=== PATIENT | female | born 2000 | race Caucasian/White ===

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

== ENCOUNTER 2020-08-03 16:38 | Outpatient (CLI) | payer OTHER ==
--- NOTE | 2020-08-03 17:35 | RAD ---
2 view chest: [08/03/2020] Comparison:10/21/2014 HISTORY: Coughing and wheezing FINDINGS: Heart and mediastinal contours are grossly unremarkable. No pneumothorax or pleural fluid. No focal consolidation or alveolar edema. IMPRESSION: No acute findings.
== END 2020-08-03 16:39 | disposition home or self-care (01) ==
LOC: SCSRAD 16:38
PROVIDERS: ATTEND Family Medicine
DX: J45.30 Mild persistent asthma, uncomplicated (principal)
CPT/HCPCS: 36415; 71046; 80053; 84443; 85025; 87086

== ENCOUNTER 2020-10-30 22:02 | Emergency (ER) | payer OTHER ==
[2020-10-30 22:49] LABS: #Basophils 0.1 thou/uL (0.0-0.2); #Lymphocytes 1.6 thou/uL (1.20-3.40); #Monocytes 0.7 thou/uL (0.11-0.59); #Neutrophils 6.7 thou/uL (1.40-6.50); %Basophils 0.6 % (0.0-1.0); %Eosinophils 0.4 % (0.0-10.0); %Lymphocytes 17.8 % (28.0-48.0); %Monocytes 7.2 % (0.0-4.0); %Neutrophils 74.1 % (31.0-61.0); Hemoglobin 14.4 g/dL (12.0-16.0); Mean Corpuscular HGB CONC 32.1 g/dL (32.0-36.0); Mean Corpuscular Hemoglobin 31.5 pg (25.0-35.0); Mean Corpuscular Volume 98.1 fL (78.0-98.0); Mean Platelet Volume 8.6 fL (7.4-10.4); Platelet Count 254 thou/uL (130-400); RBC Distribution Width 11.3 % (11.5-14.5); Red Blood Cell (RBC) Count 4.57 mill/uL (4.00-5.20)
--- NOTE | 2020-10-30 22:55 | RAD ---
Chest one view HISTORY: Dyspnea. COMPARISON: 08/03/2020. FINDINGS: Cardiac silhouette is magnified by projection. Pulmonary vasculature is unremarkable. Mediastinum is midline. No lobar consolidation or evidence of pneumothorax. IMPRESSION : No abnormalities are demonstrated.
[2020-10-30 22:56] LABS: BHCG - Serum Negative (NEGATIVE); Pregs Control Background? CLEAR/WHITE (CLR/WHITE); Pregs Control Bar Appear? YES (CONTROL BAR)
[2020-10-30 23:05] LABS: Bilirubin Negative (Negative); Blood, Urine 3+ (Negative); Clarity Clear (Clear); Glucose, Urine (Dipstick) Normal (Negative); Ketone, Urine Negative (Negative); Leukocyte Negative Leu/uL (Negative); Nitrite Negative (Negative); Protein, Urine (Dipstick) Negative (Neg-Trace); RBC/HPF 0-3 HPF (0-3); Specific Gravity, Urine 1.002 (1.002-1.036); Urobilinogen Normal mg/dL (Less than 2); WBC/HPF 0-3 HPF (0-3)
[2020-10-30 23:11] LABS: ALT (SGPT) 15 U/L (8-55); AST (SGOT) 17 U/L (5-30); Albumin 4.8 g/dL (3.5-5.0); Alkaline Phosphatase 73 U/L (40-100); Anion Gap 15 mmol/L (10-20); BUN (Urea Nitrogen) 9 mg/dL (8.4-21.0); Bilirubin, Total 0.5 mg/dL (0.2-1.2); Calc. Creatinine Clearance 0 mL/min (70-130); Calcium 9.3 mg/dL (7.8-10.44); Carbon Dioxide 23 mmol/L (22-29); Chloride 105 mmol/L (98-107); Globulin 2.8 g/dL (2.4-3.5); Glucose 95 mg/dL (70-105); Potassium 3.7 mmol/L (3.5-5.1); Protein, Total 7.6 g/dL (6.0-8.3); Sodium 139 mmol/L (136-145)
[2020-10-30 23:12] LABS: Bacteria/HPF 1+ HPF (None Seen)
[2020-10-30 23:13] LABS: Squamous Epithelial 0-3 HPF (0-3)
== END 2020-10-30 23:59 | disposition home or self-care (01) ==
LOC: ERS 22:02
DX: R42 Dizziness and giddiness (principal); R00.2 Palpitations; R11.0 Nausea
CPT/HCPCS: 71045; 80053; 81003; 81015; 84484; 84703; 85025; 93005

== ENCOUNTER 2021-11-02 05:08 | Emergency (ER) | payer OTHER ==
[2021-11-02] MEDS ORDERED: Ondansetron PF 4 MG/2 ML Vial ONE (05:28)
[2021-11-02] MEDS ORDERED: Acetaminophen 500 MG TAB ONE (05:50)
[2021-11-02 05:57] LABS: #Lymphocytes 0.6 thou/uL (1.20-3.40); #Monocytes 0.4 thou/uL (0.11-0.59); #Neutrophils 8.2 thou/uL (1.40-6.50); %Basophils 0.1 % (0.0-1.0); %Eosinophils 0.5 % (0.0-10.0); %Monocytes 4.4 % (0.0-4.0); Hemoglobin 15.1 g/dL (12.0-16.0); Mean Corpuscular HGB CONC 34.7 g/dL (32.0-36.0); Mean Corpuscular Hemoglobin 33.2 pg (25.0-35.0); Mean Corpuscular Volume 95.7 fL (78.0-98.0); Mean Platelet Volume 8.7 fL (7.4-10.4); Platelet Count 182 thou/uL (130-400); RBC Distribution Width 11.2 % (11.5-14.5); Red Blood Cell (RBC) Count 4.56 mill/uL (4.00-5.20); White Blood Cell (WBC) Count 9.2 thou/uL (4.8-10.8)
[2021-11-02 06:03] LABS: Bilirubin Negative (Negative); Blood, Urine Negative (Negative); Clarity Extra Turbid (Clear); Glucose, Urine (Dipstick) Normal (Negative); Ketone, Urine Negative (Negative); Leukocyte Negative Leu/uL (Negative); Nitrite Negative (Negative); Protein, Urine (Dipstick) 20 mg/dL (Neg-Trace); Specific Gravity, Urine 1.028 (1.002-1.036); Urobilinogen Normal mg/dL (Less than 2); pH, Urine 5.5 (5.0-9.0)
[2021-11-02 06:04] LABS: Pregnancy Test - Urine (BHCG) Negative (Negative); Pregu Control Background? CLEAR/WHITE (CLR/WHITE); Pregu Control Bar Appear? YES (CONTROL BAR); Specific Gravity 1.028 (1.002-1.036)
[2021-11-02 06:20] LABS: ALT (SGPT) 16 U/L (8-55); AST (SGOT) 21 U/L (5-34); Albumin 4.5 g/dL (3.5-5.0); Alkaline Phosphatase 75 U/L (40-100); Anion Gap 14 mmol/L (10-20); BUN (Urea Nitrogen) 14 mg/dL (7.0-18.7); Bilirubin, Total 0.9 mg/dL (0.2-1.2); Calc. Creatinine Clearance 0 mL/min (70-130); Calcium 9.6 mg/dL (7.8-10.44); Carbon Dioxide 24 mmol/L (22-29); Chloride 101 mmol/L (98-107); Glucose 101 mg/dL (70-105); Lipase 16 U/L (8-78); Protein, Total 7.5 g/dL (6.0-8.3); Sodium 135 mmol/L (136-145)
[2021-11-02] MEDS ORDERED: Promethazine HCl 25 MG/ML VIAL ONE (06:37)
== END 2021-11-02 08:31 | disposition home or self-care (01) ==
LOC: ERS 05:08
DX: R11.2 Nausea with vomiting, unspecified (principal); Z79.899 Other long term (current) drug therapy
CPT/HCPCS: 80053; 81003; 81025; 83690; 85025; 96374; 96375; J2405; J2550

== ENCOUNTER 2022-08-12 19:53 | Emergency (ER) | payer OTHER, SELFPAY ==
[2022-08-12 20:45] LABS: #Basophils 0.1 thou/uL (0.0-0.2); #Eosinphils 0.2 thou/uL (0.0-0.7); #Lymphocytes 2.5 thou/uL (1.20-3.40); #Monocytes 0.7 thou/uL (0.11-0.59); #Neutrophils 5.4 thou/uL (1.40-6.50); %Basophils 0.7 % (0.0-1.0); %Eosinophils 2.1 % (0.0-10.0); %Lymphocytes 27.9 % (21.0-51.0); %Monocytes 7.9 % (0.0-10.0); %Neutrophils 61.4 % (42.0-75.0); Hemoglobin 14.7 g/dL (12.0-16.0); Mean Corpuscular Hemoglobin 32.3 pg (27.0-31.0); Mean Corpuscular Volume 94.8 fL (78.0-98.0); Mean Platelet Volume 8.7 fL (7.4-10.4); Platelet Count 235 thou/uL (130-400); RBC Distribution Width 11.3 % (11.5-14.5); Red Blood Cell (RBC) Count 4.56 mill/uL (4.20-5.40); White Blood Cell (WBC) Count 8.8 thou/uL (4.8-10.8)
[2022-08-12 21:02] LABS: ALT (SGPT) 11 U/L (8-55); AST (SGOT) 14 U/L (5-34); Albumin 4.8 g/dL (3.5-5.0); Alkaline Phosphatase 82 U/L (40-110); Anion Gap 13 mmol/L (10-20); BUN (Urea Nitrogen) 10 mg/dL (7.0-18.7); Bilirubin, Total 0.4 mg/dL (0.2-1.2); Calc. Creatinine Clearance 0 mL/min (70-130); Calcium 10.1 mg/dL (7.8-10.44); Carbon Dioxide 24 mmol/L (22-29); Chloride 105 mmol/L (98-107); Estimated GFR 101; Globulin 2.6 g/dL (2.4-3.5); Glucose 92 mg/dL (70-105); Potassium 3.9 mmol/L (3.5-5.1); Protein, Total 7.4 g/dL (6.0-8.3); Sodium 138 mmol/L (136-145)
== END 2022-08-12 22:09 | disposition home or self-care (01) ==
LOC: ERS 19:53
DX: R07.89 Other chest pain (principal)
CPT/HCPCS: 36415; 71045; 80053; 84484; 85025; 93005

== ENCOUNTER 2023-06-25 05:23 | Emergency (ER) | payer OTHER ==
[2023-06-25] MEDS ORDERED: Acetaminophen 500 MG TAB ONE (05:48)
[2023-06-25] MEDS ORDERED: Ketorolac Tromethamine 30 MG/ML VIAL ONE (05:48)
[2023-06-25] MEDS ORDERED: Ondansetron PF 4 MG/2 ML Vial ONE (05:48)
[2023-06-25 05:56] LABS: #Monocytes 0.4 thou/uL (0.11-0.59); #Neutrophils 8.1 thou/uL (1.40-6.50); %Basophils 0.2 % (0.0-1.0); %Eosinophils 0.1 % (0.0-10.0); %Lymphocytes 7.8 % (21.0-51.0); %Monocytes 4.4 % (0.0-10.0); %Neutrophils 87.3 % (42.0-75.0); Hematocrit 43.3 % (36.0-47.0); Hemoglobin 15.1 g/dL (12.0-16.0); Mean Corpuscular HGB CONC 34.9 g/dL (32.0-36.0); Mean Corpuscular Hemoglobin 31.7 pg (27.0-31.0); Mean Platelet Volume 11.3 fL (7.4-10.4); Platelet Count 206 10x3/uL (130-400); RBC Distribution Width 11.8 % (11.5-14.5); Red Blood Cell (RBC) Count 4.76 mill/uL (4.20-5.40); White Blood Cell (WBC) Count 9.3 10x3/uL (4.8-10.8)
[2023-06-25 06:19] LABS: ALT (SGPT) 13 U/L (8-55); AST (SGOT) 16 U/L (5-34); Albumin 4.7 g/dL (3.5-5.0); Alkaline Phosphatase 68 U/L (40-110); Anion Gap 16 mmol/L (10-20); BUN (Urea Nitrogen) 11 mg/dL (7.0-18.7); Calc. Creatinine Clearance 0 mL/min (70-130); Calcium 9.5 mg/dL (7.8-10.44); Carbon Dioxide 22 mmol/L (22-29); Chloride 103 mmol/L (98-107); Estimated GFR 101; Globulin 2.6 g/dL (2.4-3.5); Glucose 107 mg/dL (70-105); Potassium 3.7 mmol/L (3.5-5.1); Protein, Total 7.3 g/dL (6.0-8.3); Sodium 137 mmol/L (136-145)
[2023-06-25 07:20] LABS: SARS-CoV-2 NAA Rapid Test Not Detected (NotDetected)
[2023-06-25 07:46] LABS: Clarity Clear (Clear); Leukocyte Negative Leu/uL (Negative); Nitrite Negative (Negative); Protein, Urine (Dipstick) Negative (Neg-Trace); Specific Gravity, Urine 1.004 (1.002-1.036)
[2023-06-25 07:47] LABS: Bilirubin Negative (Negative); Blood, Urine Negative (Negative); CAUTI Indications for Culture Fever or rigors; Glucose, Urine (Dipstick) Normal (Negative); Ketone, Urine 10 mg/dL (Negative); RBC/HPF 0-3 HPF (0-3); Squamous Epithelial 0-3 HPF (0-3); Urobilinogen Normal mg/dL (Less than 2); WBC/HPF 0-3 HPF (0-3)
[2023-06-25 07:49] LABS: Bacteria/HPF 1+ HPF (None Seen); Urine Culture Reflex No No
== END 2023-06-25 07:55 | disposition home or self-care (01) ==
LOC: ERS 05:23
DX: A08.4 Viral intestinal infection, unspecified (principal); E86.0 Dehydration; L03.119 Cellulitis of unspecified part of limb
CPT/HCPCS: 71045; 80053; 81001; 83605; 85025; 87040; 93005; 96374; 96375; J1885; J2405

== ENCOUNTER 2023-11-03 14:12 | Emergency (ER) | payer OTHER ==
[2023-11-03] MEDS ORDERED: EPINEPHrine 1 MG/ML VIAL ONE (14:19)
[2023-11-03] MEDS ORDERED: Dexamethasone 10 MG/ML VIAL ONE (14:33)
[2023-11-03] MEDS ORDERED: diphenhydrAMINE 50 MG/ML VIAL ONE (14:33)
== END 2023-11-03 18:00 | disposition home or self-care (01) ==
LOC: ERS 14:12
DX: T78.40XA Allergy, unspecified, initial encounter (principal)
CPT/HCPCS: 96372; 96374; 96375; J0171; J1100; J1200

== ENCOUNTER 2023-11-08 20:18 | Emergency (ER) | payer OTHER | END 2023-11-08 21:03 | disposition left against medical advice (07) | LOC: ERS 20:18 | DX: Z53.21 Procedure and treatment not carried out due to patient leaving prior to being seen by health care provider (principal) ==

== ENCOUNTER 2024-01-10 14:55 | Emergency (ER) | payer OTHER, SELFPAY ==
[2024-01-10] MEDS ORDERED: Lidocaine 2% Viscous 10 mL, Alum & Magn 30 mL SSW SCH (17:15)
[2024-01-10] MEDS ORDERED: Dexamethasone 10 MG/ML VIAL ONE (17:34)
== END 2024-01-10 17:00 | disposition home or self-care (01) ==
LOC: ERS 14:55
DX: K20.90 Esophagitis, unspecified without bleeding (principal); R13.10 Dysphagia, unspecified
CPT/HCPCS: 99283; J1100

== ENCOUNTER 2024-01-12 18:46 | Emergency (ER) | payer SELFPAY | END 2024-01-12 21:35 | disposition home or self-care (01) | LOC: ERS 18:46 | DX: J02.9 Acute pharyngitis, unspecified (principal); K20.90 Esophagitis, unspecified without bleeding; J45.909 Unspecified asthma, uncomplicated; Z55.6 Problems related to health literacy; Z42.8 Encounter for other plastic and reconstructive surgery following medical procedure or healed injury | CPT/HCPCS: 71045; 87081; 87430; 99283 ==

== ENCOUNTER 2024-03-26 13:59 | Outpatient (CLI) | payer BC ==
[2024-03-26 14:52] LABS: Hematocrit 42.1 % (34.9-44.5); Hemoglobin 14.5 g/dL (12.0-15.5); Mean Corpuscular HGB CONC 34.4 g/dL (32.0-36.0); Mean Corpuscular Hemoglobin 31.8 pg (27.0-33.0); Mean Corpuscular Volume 92.3 fl (81.6-98.3); Mean Platelet Volume 11.6 fl (7.4-10.4); Platelet Count 245 10x3/uL (150-450); RBC Distribution Width 12.4 % (11.5-14.5); Red Blood Cell (RBC) Count 4.56 10x6/uL (3.90-5.03)
[2024-03-26 15:12] LABS: INR-International Normal Ratio 1.1; PTT 29.3 sec (22.0-33.0); Prothrombin Time 11.5 sec (9.5-12.1)
[2024-03-26 15:34] LABS: BHCG - Serum Negative (NEGATIVE); Pregs Control Background? CLEAR/WHITE (CLR/WHITE); Pregs Control Bar Appear? YES (CONTROL BAR)
[2024-03-26 15:35] LABS: Anion Gap 15 mmol/L (10-20); BUN (Urea Nitrogen) 6 mg/dL (7.0-18.7); Calc. Creatinine Clearance 0 mL/min (70-130); Calcium 9.8 mg/dL (7.8-10.44); Carbon Dioxide 24 mmol/L (22-29); Chloride 104 mmol/L (98-107); Estimated GFR 108; Glucose 86 mg/dL (70-105); Potassium 4.3 mmol/L (3.5-5.1); Sodium 139 mmol/L (136-145)
== END 2024-03-26 14:00 | disposition home or self-care (01) ==
LOC: LAB 13:59
PROVIDERS: ATTEND Urology
DX: Z01.812 Encounter for preprocedural laboratory examination (principal); F41.1 Generalized anxiety disorder; N13.30 Unspecified hydronephrosis; K58.1 Irritable bowel syndrome with constipation; K58.0 Irritable bowel syndrome with diarrhea; R35.0 Frequency of micturition
CPT/HCPCS: 80048; 84703; 85027; 85610; 85730

== ENCOUNTER 2024-03-27 06:35 | Day surgery (SDC) | payer BC ==
[2024-03-26 15:30] VITALS: BMI 21.9
== END 2024-03-27 11:02 | disposition home or self-care (01) ==
LOC: SDC 06:35
PROVIDERS: ATTEND Urology
PROC: 0T778DZ Dilation of Left Ureter with Intraluminal Device, Via Natural or Artificial Opening Endoscopic (ICD-10-PCS; principal; 2024-03-27)
DX: N13.30 Unspecified hydronephrosis (principal); K58.2 Mixed irritable bowel syndrome; R35.0 Frequency of micturition; J45.909 Unspecified asthma, uncomplicated; F41.1 Generalized anxiety disorder; F32.A Depression, unspecified; Z98.890 Other specified postprocedural states; Z90.89 Acquired absence of other organs; Z79.899 Other long term (current) drug therapy; Z91.040 Latex allergy status; Z88.0 Allergy status to penicillin; Z91.018 Allergy to other foods; Z88.2 Allergy status to sulfonamides
CPT/HCPCS: 74420; C1769; C2617; J1100; J1200; J1956; J2250; J2405; J2704; Q9967; S0028

== ENCOUNTER 2024-04-01 06:23 | Day surgery (SDC) | payer BC ==
[2024-03-28 14:49] VITALS: BMI 21.8
[2024-04-01] MEDS ORDERED: EPINEPHrine 1 MG/ML VIAL ONE (06:30)
[2024-04-01] MEDS ORDERED: Bupivacaine 0.25% HCL 30 ML VIAL ONE (06:30)
[2024-04-01] MEDS ORDERED: Ondansetron PF 4 MG/2 ML Vial ONE (06:31)
[2024-04-01] MEDS ORDERED: Rocuronium Bromide 10 MG/ML (10ML VIAL) ONE (06:31)
[2024-04-01] MEDS ORDERED: Dexamethasone 4 mg/ml Vial ONE (06:31)
[2024-04-01] MEDS ORDERED: Lidocaine 1% PF 5 ML VIAL ONE (06:31)
[2024-04-01] MEDS ORDERED: Propofol 1,000 MG/100 ML VIAL IV ONE (06:43)
[2024-04-01] MEDS ORDERED: HYDROmorphone 0.5 MG/0.5 ML SYRINGE ONE (06:44)
[2024-04-01] MEDS ORDERED: Midazolam HCl 2 mg/2 ml Vial ONE ×2 (06:51→07:32)
[2024-04-01] MEDS ORDERED: PROPOFOL 20 ML ONE (06:51)
[2024-04-01] MEDS ORDERED: fentaNYL PF 100 MCG/2 ML SYRINGE ONE (06:51)
[2024-04-01 07:16] LABS: ALT (SGPT) 23 U/L (8-55); AST (SGOT) 28 U/L (5-34); Albumin 4.5 g/dL (3.5-5.0); Alkaline Phosphatase 72 U/L (40-110); Anion Gap 16 mmol/L (10-20); BUN (Urea Nitrogen) Less than 4 mg/dL (7.0-18.7); Bilirubin, Total 0.8 mg/dL (0.2-1.2); Calc. Creatinine Clearance 115 mL/min (70-130); Calcium 10.2 mg/dL (7.8-10.44); Carbon Dioxide 21 mmol/L (22-29); Chloride 106 mmol/L (98-107); Estimated GFR 125; Globulin 3.2 g/dL (2.4-3.5); Glucose 95 mg/dL (70-105); Potassium 3.6 mmol/L (3.5-5.1); Protein, Total 7.7 g/dL (6.0-8.3); Sodium 139 mmol/L (136-145)
[2024-04-01] MEDS ORDERED: Famotidine/PF 20 mg/2ml Vial ONE (07:33)
[2024-04-01] MEDS ORDERED: CEFAZOLIN 2 GM VIAL ONE (07:57)
[2024-04-01] MEDS ORDERED: Sodium Chloride 0.9% 100 ML ONE (07:57)
[2024-04-01] MEDS ORDERED: PHENYLEPHRINE-NS 100 MCG/ML 10 ML SYRINGE ONE (08:18)
[2024-04-01] MEDS ORDERED: SUGAMMADEX SODIUM 200 MG/2 ML VIAL ONE ×2 (09:07→09:28)
[2024-04-01] MEDS ORDERED: fentaNYL 50 mcg/mL 1 mL Vial ONE (10:02)
[2024-04-01] MEDS ORDERED: HYDROcodone/Acetaminophen 5/325 mg Tablet ONE (11:25)
[2024-04-01] MEDS ORDERED: Ondansetron ODT 4 MG TAB ONE (12:25)
== END 2024-04-01 12:38 | disposition home or self-care (01) ==
LOC: SDC 06:23
PROVIDERS: ATTEND Surgery
PROC: 0WBH4ZX Excision of Retroperitoneum, Percutaneous Endoscopic Approach, Diagnostic (ICD-10-PCS; principal; 2024-04-01)
DX: D49.0 Neoplasm of unspecified behavior of digestive system (principal); J45.909 Unspecified asthma, uncomplicated; M19.90 Unspecified osteoarthritis, unspecified site; F41.9 Anxiety disorder, unspecified; F32.A Depression, unspecified; Z79.899 Other long term (current) drug therapy; Z90.89 Acquired absence of other organs; Z91.040 Latex allergy status; Z88.1 Allergy status to other antibiotic agents; Z88.2 Allergy status to sulfonamides; Z91.018 Allergy to other foods
CPT/HCPCS: 80053; 88305; 88331; A4314; A4333; J0171; J0665; J1100; J1170; J2250; J2405; J2704; J3010; J3490; Q0162; S0028

== ENCOUNTER 2024-04-25 16:19 | Outpatient (CLI) | payer BC ==
[2024-04-25 17:25] LABS: Hematocrit 40.1 % (34.9-44.5); Mean Corpuscular HGB CONC 34.9 g/dL (32.0-36.0); Mean Corpuscular Hemoglobin 32.3 pg (27.0-33.0); Mean Corpuscular Volume 92.4 fL (81.6-98.3); Mean Platelet Volume 11.2 fL (7.4-10.4); Platelet Count 250 10x3/uL (150-450); RBC Distribution Width 12.3 % (11.5-14.5); Red Blood Cell (RBC) Count 4.34 10x6/uL (3.90-5.03); White Blood Cell (WBC) Count 6.2 10x3/uL (3.5-10.5)
[2024-04-25 17:34] LABS: INR-International Normal Ratio 1.1; PTT 27.9 sec (22.0-33.0); Prothrombin Time 11.4 sec (9.5-12.1)
[2024-04-25 17:45] LABS: BHCG - Serum Negative (NEGATIVE); Pregs Control Background? CLEAR/WHITE (CLR/WHITE); Pregs Control Bar Appear? YES (CONTROL BAR)
[2024-04-25 17:50] LABS: Anion Gap 13 mmol/L (10-20); BUN (Urea Nitrogen) 6 mg/dL (7.0-18.7); Calc. Creatinine Clearance 0 mL/min (70-130); Carbon Dioxide 26 mmol/L (22-29); Chloride 104 mmol/L (98-107); Estimated GFR 108; Glucose 85 mg/dL (70-105); Sodium 139 mmol/L (136-145)
== END 2024-04-25 16:20 | disposition home or self-care (01) ==
LOC: LABBT 16:19
PROVIDERS: ATTEND Urology
DX: Z01.812 Encounter for preprocedural laboratory examination (principal); N13.30 Unspecified hydronephrosis; C49.9 Malignant neoplasm of connective and soft tissue, unspecified; F41.1 Generalized anxiety disorder; K58.2 Mixed irritable bowel syndrome; R35.0 Frequency of micturition
CPT/HCPCS: 80048; 84703; 85027; 85610; 85730

== ENCOUNTER 2024-05-01 06:46 | Day surgery (SDC) | payer BC ==
[2024-04-25 16:58] VITALS: BMI 20.9
[2024-05-01] MEDS ORDERED: Midazolam HCl 2 mg/2 ml Vial ONE (07:18)
[2024-05-01] MEDS ORDERED: fentaNYL PF 100 MCG/2 ML SYRINGE ONE (07:18)
[2024-05-01] MEDS ORDERED: PROPOFOL 20 ML ONE (07:18)
[2024-05-01] MEDS ORDERED: Ondansetron PF 4 MG/2 ML Vial ONE (07:18)
[2024-05-01] MEDS ORDERED: Rocuronium Bromide 10 MG/ML (10ML VIAL) ONE (07:18)
[2024-05-01] MEDS ORDERED: Dexamethasone 4 mg/ml Vial ONE (07:19)
[2024-05-01] MEDS ORDERED: Iopamidol 30 ML ONE (07:22)
[2024-05-01] MEDS ORDERED: LevoFLOXacin D5W 500 mg (100 mL) BAG ONE (07:27)
== END 2024-05-01 09:15 | disposition home or self-care (01) ==
LOC: SDC 06:46
PROVIDERS: ATTEND Urology
PROC: 0T778DZ Dilation of Left Ureter with Intraluminal Device, Via Natural or Artificial Opening Endoscopic (ICD-10-PCS; principal; 2024-05-01)
DX: C48.0 Malignant neoplasm of retroperitoneum (principal); N13.30 Unspecified hydronephrosis; J45.909 Unspecified asthma, uncomplicated; M19.90 Unspecified osteoarthritis, unspecified site; F32.A Depression, unspecified; Z79.899 Other long term (current) drug therapy; Z98.890 Other specified postprocedural states; Z88.8 Allergy status to other drugs, medicaments and biological substances; Z91.040 Latex allergy status; Z88.2 Allergy status to sulfonamides; Z91.018 Allergy to other foods
CPT/HCPCS: 74420; C2617; J1100; J1956; J2250; J2405; J2704; Q9967

== ENCOUNTER 2024-10-01 15:44 | Outpatient (CLI) | payer BC ==
[2024-10-01 17:04] LABS: #Basophils 0.03 10x3/uL (0.0-0.2); %Basophils 0.5 % (0.0-1.0); %Eosinophils 3.1 % (0.0-10.0); %Lymphocytes 30.1 % (21.0-51.0); %Monocytes 10.2 % (0.0-10.0); %Neutrophils 55.9 % (42.0-75.0); Hematocrit 40.8 % (36.0-47.0); Hemoglobin 13.8 g/dL (12.0-16.0); Mean Corpuscular HGB CONC 33.8 g/dL (32.0-36.0); Mean Corpuscular Hemoglobin 31.1 pg (27.0-31.0); Mean Corpuscular Volume 91.9 fL (78.0-98.0); Mean Platelet Volume 11.2 fL (7.4-10.4); Platelet Count 209 10x3/uL (130-400); RBC Distribution Width 12.6 % (11.5-14.5); Red Blood Cell (RBC) Count 4.44 mill/uL (4.20-5.40)
[2024-10-01 17:11] LABS: Bacteria/HPF None Seen HPF (None Seen); Bilirubin Negative (Negative); Blood, Urine Negative (Negative); Clarity Clear (Clear); Glucose, Urine (Dipstick) Normal (Negative); Ketone, Urine Negative (Negative); Leukocyte 25 Leu/uL (Negative); Nitrite Negative (Negative); Protein, Urine (Dipstick) Negative (Neg-Trace); RBC/HPF 0-3 HPF (0-3); Squamous Epithelial 0-3 HPF (0-3); Urobilinogen Normal mg/dL (Less than 2); WBC/HPF 0-3 HPF (0-3)
[2024-10-01 17:14] LABS: BHCG - Serum Negative (NEGATIVE); Pregs Control Background? CLEAR/WHITE (CLR/WHITE); Pregs Control Bar Appear? YES (CONTROL BAR)
[2024-10-01 17:20] LABS: Anion Gap 10 mmol/L (10-20); BUN (Urea Nitrogen) 8 mg/dL (7.0-18.7); Calc. Creatinine Clearance 0 mL/min (70-130); Calcium 9.1 mg/dL (7.8-10.44); Carbon Dioxide 26 mmol/L (22-29); Chloride 103 mmol/L (98-107); Estimated GFR 122; Glucose 81 mg/dL (70-105); Potassium 3.5 mmol/L (3.5-5.1); Sodium 135 mmol/L (136-145)
[2024-10-01 17:21] LABS: PTT 29.1 sec (22.9-36.1)
== END 2024-10-01 15:45 | disposition home or self-care (01) ==
LOC: LABBT 15:44
PROVIDERS: ATTEND Urology
DX: Z01.818 Encounter for other preprocedural examination (principal); C49.9 Malignant neoplasm of connective and soft tissue, unspecified; K58.2 Mixed irritable bowel syndrome; D48.119 Desmoid tumor of unspecified site; R35.0 Frequency of micturition; N13.30 Unspecified hydronephrosis; F41.1 Generalized anxiety disorder
CPT/HCPCS: 80048; 81001; 84703; 85025; 85610; 85730; 87086

== ENCOUNTER 2024-10-09 06:32 | Day surgery (SDC) | payer BC ==
[2024-10-01 15:58] VITALS: BMI 20.5
[2024-10-09] MEDS ORDERED: LevoFLOXacin D5W 500 mg (100 mL) BAG ONE (09:43)
[2024-10-09] MEDS ORDERED: PROPOFOL 60 ML ONE (10:25)
[2024-10-09] MEDS ORDERED: Midazolam HCl 2 mg/2 ml Vial ONE (10:25)
[2024-10-09] MEDS ORDERED: Lidocaine 2% PF 5 ML VIAL ONE (10:25)
[2024-10-09] MEDS ORDERED: fentaNYL PF 100 MCG/2 ML SYRINGE ONE (10:25)
[2024-10-09] MEDS ORDERED: Famotidine/PF 20 mg/2ml Vial ONE (10:33)
[2024-10-09] MEDS ORDERED: Dexamethasone 4 mg/ml Vial ONE (10:59)
[2024-10-09] MEDS ORDERED: Ondansetron PF 4 MG/2 ML Vial ONE (10:59)
[2024-10-09] MEDS ORDERED: Phenazopyridine HCl 100 MG TAB ONE (11:31)
[2024-10-09] MEDS ORDERED: Oxybutynin 5 MG TAB ONE (11:32)
== END 2024-10-09 13:30 | disposition home or self-care (01) ==
LOC: SDC 06:32
PROVIDERS: ATTEND Urology
PROC: BT1FZZZ Fluoroscopy of Left Kidney, Ureter and Bladder (ICD-10-PCS; principal; 2024-10-09)
PROC: 0T778DZ Dilation of Left Ureter with Intraluminal Device, Via Natural or Artificial Opening Endoscopic (ICD-10-PCS; principal; 2024-10-09)
DX: N13.30 Unspecified hydronephrosis (principal); C49.9 Malignant neoplasm of connective and soft tissue, unspecified; K58.2 Mixed irritable bowel syndrome; D48.119 Desmoid tumor of unspecified site; J45.909 Unspecified asthma, uncomplicated; F32.A Depression, unspecified; F41.9 Anxiety disorder, unspecified; Z90.89 Acquired absence of other organs; Z88.1 Allergy status to other antibiotic agents; Z88.2 Allergy status to sulfonamides; Z91.018 Allergy to other foods; Z91.040 Latex allergy status; Z79.51 Long term (current) use of inhaled steroids; Z79.899 Other long term (current) drug therapy
CPT/HCPCS: 74420; C2617; J1100; J1956; J2250; J2405; J2704; J3490